=== PATIENT | female | born 1945 | race Asian ===

== ENCOUNTER 2023-04-23 17:18 | Inpatient (IN) | payer MEDICARE, OTHER ==
[~2023-04-23] VITALS: Ht 152.4 cm; Wt 52.2 kg
[2023-04-23 18:16] LABS: BASOPHILS % (AUTO) 0.2 % (0.0-2.0); EOSINOPHILS # (AUTO) 0.1 K/uL (0.0-0.7); EOSINOPHILS % (AUTO) 0.8 % (0.0-7.0); HEMATOCRIT 34.6 % (31.2-41.9); HEMOGLOBIN 10.9 g/dL (10.9-14.3); LYMPHOCYTES # (AUTO) 1.4 K/uL (0.8-4.8); LYMPHOCYTES % (AUTO) 8.4 % (20.5-51.5); MEAN CORPUSCULAR HEMOGLOBIN 27.5 uug (24.7-32.8); MEAN CORPUSCULAR HGB CONC 32 g/dL (32.3-35.6); MEAN CORPUSCULAR VOLUME 87.2 fL (75.5-95.3); MONOCYTES # (AUTO) 0.4 K/uL (0.1-1.30); MONOCYTES % (AUTO) 2.7 % (0.0-11.0); NEUTROPHILS # (AUTO) 14.2 K/uL (1.8-8.9); NEUTROPHILS % (AUTO) 87.9 % (38.5-71.5); PLATELET COUNT (AUTO) 291 K/uL (179-408); RED BLOOD CELL COUNT(AUTO) 3.97 MIL/uL (3.63-4.92); RED CELL DISTRIBUTION WIDTH 13.7 % (12.3-17.7); WHITE BLOOD COUNT (AUTO) 16.2 K/uL (3.8-11.8)
[2023-04-23 18:22] LABS: DIFFERENTIAL COMMENT 1
[2023-04-23 18:31] LABS: CALCIUM 9.2 mg/dL (8.5-10.1); CARBON DIOXIDE 24 mmol/L (21-32); CHLORIDE 105 mmol/L (98-107); CREATININE 1.4 mg/dL (0.6-1.3); GLUCOSE 220 mg/dL (74-106); POTASSIUM 4.4 mmol/L (3.5-5.1); SODIUM SERUM 135 mmol/L (136-145); UREA NITROGEN, BLOOD 39 mg/dL (7-18)
[2023-04-23 18:45] LABS: ALANINE AMINOTRANSFERASE 23 U/L (14-59); ALBUMIN 3.2 g/dL (3.4-5.0); ALKALINE PHOSPHATASE 66 U/L (50-136); ASPARTATE AMINOTRANSFERASE 12 U/L (15-37); BILIRUBIN,DIRECT 0.1 mg/dL (0.0-0.2); BILIRUBIN,TOTAL 0.3 mg/dL (0.2-1.0); NT-PRO BNP 79 pg/mL (0-125); TOTAL PROTEIN, SERUM 7.2 g/dL (6.4-8.2)
[2023-04-23 20:00] LABS: *BILIRUBIN,URIN NEGATIVE (NEGATIVE); *BLOOD, URINE 2+ (NEGATIVE); *CLARITY,URINE CLOUDY (CLEAR); *COLOR,URINE YELLOW (YELLOW); *KETONES,URINE NEGATIVE (NEGATIVE); *PROTEIN,URINE 1+ (NEGATIVE); *UROBILINOGEN,URINE 0.2 E.U./dl (NORMAL); LEUKOCYTE ESTERASE ,URINE 1+ (NEGATIVE); NITRITE, URINE POSITIVE (NEGATIVE); UGLUCOSE NEGATIVE (NEGATIVE)
[2023-04-23 20:26] LABS: BACTERIA,URINE MANY /HPF (NONE SEEN); RBC,URINE 50-80 /HPF (0-3)
[2023-04-23 20:27] LABS: SQUAMOUS EPITHELIAL CELL,UR FEW /HPF (NONE SEEN)
[2023-04-23] MEDS ORDERED: CEFTRIAXONE 1 G in IV DEXTROSE 5% 50 ML IV ONE (21:00)
[2023-04-23] MEDS ORDERED: CEFTRIAXONE /D5W 50ML IVPB **ER PYXIS IV ONE (21:12)
[2023-04-23] MEDS ORDERED: IV NS 1000 ML 1,000 ML IV ONE (21:15)
[2023-04-23] MEDS ORDERED: METRONIDAZOLE 500 MG/NS 100 ML PIGGYBACK IV ONE (22:00)
[2023-04-23] MEDS ORDERED: REMEDY ESSENTIAL ZINC PASTE 113 GM TP PRN (22:45)
[2023-04-23] MEDS ORDERED: MAGNESIUM HYDROXIDE 30 ML LIQUID UDC PO PRN (22:45)
[2023-04-23] MEDS ORDERED: ONDANSETRON 4 MG/2 ML VIAL IV PRN (22:45)
[2023-04-23] MEDS ORDERED: ACETAMINOPHEN 325 MG TABLET PO PRN (22:45)
[2023-04-23] MEDS ORDERED: DEXTROSE 50% 50 ML DISP.SYRIN IV PRN (23:45)
[2023-04-24] MEDS ORDERED: PIPERACILLIN SODIUM/TAZOBACTAM 3.375 G in IV DEXTROSE 5% 50 ML IV SCH ×2 (03:00→09:00)
[2023-04-24] MEDS ORDERED: PIPERACILLIN/TAZOBACTAM/D5W 50 ML IV ONE (03:28)
[2023-04-24] MEDS: BLOOD SUGAR DIAGNOSTIC 1 EACH STRIP VI SCH ×4 (08:30→21:07)
[2023-04-24] MEDS ORDERED: ENOXAPARIN SODIUM 30 MG/0.3 ML DISP.SYRIN ONE (08:51)
[2023-04-24] MEDS: ENOXAPARIN SODIUM 30 MG/0.3 ML DISP.SYRIN SQ SCH (09:11)
[2023-04-24] MEDS: PIPERACILLIN SODIUM/TAZOBACTAM 3.375 G in IV DEXTROSE 5% 100 ML IV SCH ×2 (11:56→20:05)
[2023-04-24] MEDS: INSULIN REGULAR, HUMAN 300 UNIT/3 ML VIAL SQ PRN ×3 (12:25→21:12)
[2023-04-24 17:00] VITALS: BP 126/61; TEMP 97.2; O2SAT 97
[2023-04-24] MEDS: IV NS 1000 ML 1,000 ML IV PRN ×2 (17:19→20:05)
[2023-04-24 20:59] VITALS: BP 103/72; TEMP 98.9; O2SAT 92
[2023-04-24] MEDS: REMEDY ESSENTIAL ZINC PASTE 113 GM TP SCH (21:09)
[2023-04-25 00:14] VITALS: BP 106/41; TEMP 98.8; O2SAT 95
[2023-04-25 04:06] VITALS: BP 98/35; TEMP 99.4; O2SAT 93
[2023-04-25] MEDS: PIPERACILLIN SODIUM/TAZOBACTAM 3.375 G in IV DEXTROSE 5% 100 ML IV SCH ×3 (04:09→20:05)
[2023-04-25 04:20] LABS: *BILIRUBIN,URIN NEGATIVE (NEGATIVE); *BLOOD, URINE 3+ (NEGATIVE); *COLOR,URINE YELLOW (YELLOW); *KETONES,URINE NEGATIVE (NEGATIVE); *PROTEIN,URINE 2+ (NEGATIVE); *UROBILINOGEN,URINE 0.2 E.U./dl (NORMAL); LEUKOCYTE ESTERASE ,URINE TRACE (NEGATIVE); NITRITE, URINE NEGATIVE (NEGATIVE); PH,URINE 5.5 (5.0-8.0); UGLUCOSE NEGATIVE (NEGATIVE)
[2023-04-25 04:21] LABS: *CLARITY,URINE SLIGHTLY CLOUDY (CLEAR)
[2023-04-25 04:26] LABS: *URINE TOTAL PROTEIN RANDOM 85.1 mg/dL (<150/24HR)
[2023-04-25 04:29] LABS: BACTERIA,URINE NONE SEEN /HPF (NONE SEEN); RBC,URINE 50-80 /HPF (0-3); SQUAMOUS EPITHELIAL CELL,UR FEW /HPF (NONE SEEN)
[2023-04-25 04:35] LABS: URIC ACID CRYSTALS,URINE MODERATE /HPF (NONE SEEN)
[2023-04-25 07:22] LABS: BASOPHILS % (AUTO) 0.1 % (0.0-2.0); EOSINOPHILS # (AUTO) 0.4 K/uL (0.0-0.7); EOSINOPHILS % (AUTO) 4.5 % (0.0-7.0); HEMATOCRIT 28.5 % (31.2-41.9); HEMOGLOBIN 9.5 g/dL (10.9-14.3); LYMPHOCYTES # (AUTO) 0.4 K/uL (0.8-4.8); MEAN CORPUSCULAR HEMOGLOBIN 28.6 uug (24.7-32.8); MEAN CORPUSCULAR HGB CONC 33 g/dL (32.3-35.6); MONOCYTES # (AUTO) 0.3 K/uL (0.1-1.30); MONOCYTES % (AUTO) 3.3 % (0.0-11.0); NEUTROPHILS # (AUTO) 7.2 K/uL (1.8-8.9); NEUTROPHILS % (AUTO) 87.1 % (38.5-71.5); PLATELET COUNT (AUTO) 232 K/uL (179-408); RED BLOOD CELL COUNT(AUTO) 3.31 MIL/uL (3.63-4.92); RED CELL DISTRIBUTION WIDTH 13.5 % (12.3-17.7); WHITE BLOOD COUNT (AUTO) 8.3 K/uL (3.8-11.8)
[2023-04-25] MEDS: BLOOD SUGAR DIAGNOSTIC 1 EACH STRIP VI SCH ×4 (07:22→20:32)
[2023-04-25 07:26] LABS: DIFFERENTIAL COMMENT 1
[2023-04-25 07:43] LABS: ALANINE AMINOTRANSFERASE 23 U/L (14-59); ALBUMIN 2.7 g/dL (3.4-5.0); ALKALINE PHOSPHATASE 58 U/L (50-136); ASPARTATE AMINOTRANSFERASE 20 U/L (15-37); BILIRUBIN,TOTAL 0.6 mg/dL (0.2-1.0); CALCIUM 7.7 mg/dL (8.5-10.1); CARBON DIOXIDE 22 mmol/L (21-32); CHLORIDE 103 mmol/L (98-107); CREATININE 1.5 mg/dL (0.6-1.3); GLUCOSE 158 mg/dL (74-106); MAGNESIUM 1.5 mg/dL (1.8-2.4); PHOSPHOROUS 2.7 mg/dL (2.5-4.9); POTASSIUM 3.8 mmol/L (3.5-5.1); SODIUM SERUM 135 mmol/L (136-145); TOTAL PROTEIN, SERUM 6.2 g/dL (6.4-8.2); UREA NITROGEN, BLOOD 33 mg/dL (7-18)
[2023-04-25] MEDS: INSULIN REGULAR, HUMAN 300 UNIT/3 ML VIAL SQ PRN ×3 (08:09→20:33)
[2023-04-25] MEDS: ENOXAPARIN SODIUM 30 MG/0.3 ML DISP.SYRIN SQ SCH (08:10)
[2023-04-25] MEDS: REMEDY ESSENTIAL ZINC PASTE 113 GM TP SCH ×2 (08:11→20:34)
[2023-04-25 08:20] LABS: CREATINE KINASE, TOTAL 30 U/L (26-192)
[2023-04-25] MEDS ORDERED: MAGNESIUM SULFATE/D5W 100 ML IV SCH (09:15)
[2023-04-25] MEDS: IV NS 1000 ML 1,000 ML IV PRN (10:42)
[2023-04-25 12:00] VITALS: BP 93/45; TEMP 97.9; O2SAT 98
[2023-04-25] MEDS ORDERED: D-ME473S47 PO (14:34)
[2023-04-25] MEDS ORDERED: VALS40TA4 PO (14:34)
[2023-04-25] MEDS ORDERED: DEXAMETHASONE EACHEYE (14:34)
[2023-04-25] MEDS ORDERED: LOPE2TAB25 PO (14:34)
[2023-04-25] MEDS ORDERED: ESCI10TA PO (14:34)
[2023-04-25] MEDS ORDERED: POLYMYXIN B EACHEYE (14:34)
[2023-04-25] MEDS ORDERED: ACET-2030 PO (14:34)
[2023-04-25] MEDS ORDERED: NEOMYCIN EACHEYE (14:34)
[2023-04-25] MEDS ORDERED: METF-441 PO (14:34)
[2023-04-25] MEDS ORDERED: INSU100V11 SQ (14:34)
[2023-04-25 16:00] VITALS: BP 99/51; TEMP 98; O2SAT 97
[2023-04-25 20:00] VITALS: BP 124/66; TEMP 99; O2SAT 96
[2023-04-26] VITALS: BP 120/60; TEMP 99.2; O2SAT 98
[2023-04-26] MEDS: IV NS 1000 ML 1,000 ML IV PRN ×2 (02:14→19:11)
[2023-04-26] MEDS: PIPERACILLIN SODIUM/TAZOBACTAM 3.375 G in IV DEXTROSE 5% 100 ML IV SCH ×3 (04:01→20:42)
[2023-04-26 04:58] VITALS: BP 144/68; TEMP 98; O2SAT 95
[2023-04-26] MEDS: BLOOD SUGAR DIAGNOSTIC 1 EACH STRIP VI SCH ×4 (06:36→20:50)
[2023-04-26 06:59] LABS: BASOPHILS % (AUTO) 0.1 % (0.0-2.0); EOSINOPHILS # (AUTO) 0.4 K/uL (0.0-0.7); EOSINOPHILS % (AUTO) 7.7 % (0.0-7.0); HEMATOCRIT 29.2 % (31.2-41.9); HEMOGLOBIN 9.5 g/dL (10.9-14.3); LYMPHOCYTES # (AUTO) 0.6 K/uL (0.8-4.8); LYMPHOCYTES % (AUTO) 10.7 % (20.5-51.5); MEAN CORPUSCULAR HEMOGLOBIN 28.3 uug (24.7-32.8); MEAN CORPUSCULAR HGB CONC 33 g/dL (32.3-35.6); MEAN CORPUSCULAR VOLUME 86.4 fL (75.5-95.3); MONOCYTES # (AUTO) 0.3 K/uL (0.1-1.30); MONOCYTES % (AUTO) 4.7 % (0.0-11.0); NEUTROPHILS # (AUTO) 4.3 K/uL (1.8-8.9); NEUTROPHILS % (AUTO) 76.8 % (38.5-71.5); PLATELET COUNT (AUTO) 239 K/uL (179-408); RED BLOOD CELL COUNT(AUTO) 3.37 MIL/uL (3.63-4.92); RED CELL DISTRIBUTION WIDTH 13.4 % (12.3-17.7); WHITE BLOOD COUNT (AUTO) 5.6 K/uL (3.8-11.8)
[2023-04-26 07:12] LABS: DIFFERENTIAL COMMENT 1
[2023-04-26 07:27] LABS: ALANINE AMINOTRANSFERASE 22 U/L (14-59); ALBUMIN 2.5 g/dL (3.4-5.0); ALKALINE PHOSPHATASE 58 U/L (50-136); ASPARTATE AMINOTRANSFERASE 18 U/L (15-37); BILIRUBIN,TOTAL 0.3 mg/dL (0.2-1.0); CALCIUM 7.8 mg/dL (8.5-10.1); CARBON DIOXIDE 22 mmol/L (21-32); CHLORIDE 108 mmol/L (98-107); CREATININE 1.3 mg/dL (0.6-1.3); GLUCOSE 160 mg/dL (74-106); MAGNESIUM 1.8 mg/dL (1.8-2.4); PHOSPHOROUS 2.6 mg/dL (2.5-4.9); SODIUM SERUM 138 mmol/L (136-145); TOTAL PROTEIN, SERUM 6.4 g/dL (6.4-8.2); UREA NITROGEN, BLOOD 20 mg/dL (7-18)
[2023-04-26 08:04] LABS: CREATINE KINASE, TOTAL 26 U/L (26-192)
[2023-04-26 08:06] LABS: PTH, INTACT 30 pg/mL (15-65)
[2023-04-26] MEDS: ENOXAPARIN SODIUM 30 MG/0.3 ML DISP.SYRIN SQ SCH (08:22)
[2023-04-26] MEDS: REMEDY ESSENTIAL ZINC PASTE 113 GM TP SCH ×2 (08:30→20:44)
[2023-04-26] MEDS: INSULIN REGULAR, HUMAN 300 UNIT/3 ML VIAL SQ PRN ×4 (08:56→20:57)
[2023-04-26 12:00] VITALS: TEMP 97.9
[2023-04-26 16:00] VITALS: TEMP 98.2
[2023-04-26 16:06] LABS: ALBUMIN 2.8 g/dL (2.9-4.4); ALPHA-1-GLOBULIN 0.3 g/dL (0.0-0.4); ALPHA-2-GLOBULIN 0.8 g/dL (0.4-1.0); BETA GLOBULIN 0.8 g/dL (0.7-1.3); GLOBULIN, TOTAL 2.8 g/dL (2.2-3.9); M-SPIKE Not Observed g/dL (Not Observed)
[2023-04-26 21:15] VITALS: BP 144/66; TEMP 98.4; O2SAT 97
[2023-04-26] MEDS: GUAIFENESIN SUGAR FREE 100 MG/5 ML UDC PO PRN (23:36)
[2023-04-27 00:01] VITALS: BP 142/53; TEMP 98.3; O2SAT 97
[2023-04-27] MEDS: PIPERACILLIN SODIUM/TAZOBACTAM 3.375 G in IV DEXTROSE 5% 100 ML IV SCH ×3 (03:59→20:08)
[2023-04-27 04:21] VITALS: BP 126/65; TEMP 98.2; O2SAT 96
[2023-04-27 06:24] LABS: PTH, INTACT 23 pg/mL (15-65)
[2023-04-27] MEDS: BLOOD SUGAR DIAGNOSTIC 1 EACH STRIP VI SCH ×4 (06:51→21:42)
[2023-04-27] MEDS: GUAIFENESIN SUGAR FREE 100 MG/5 ML UDC PO PRN (09:05)
[2023-04-27] MEDS: ENOXAPARIN SODIUM 30 MG/0.3 ML DISP.SYRIN SQ SCH (09:07)
[2023-04-27] MEDS: INSULIN REGULAR, HUMAN 300 UNIT/3 ML VIAL SQ PRN ×4 (09:10→21:43)
[2023-04-27] MEDS: REMEDY ESSENTIAL ZINC PASTE 113 GM TP SCH ×2 (09:11→21:40)
[2023-04-27 12:00] VITALS: BP 120/64; TEMP 98.8; O2SAT 98
[2023-04-27 13:06] LABS: A/G RATIO 0.9 (0.7-1.7); ALBUMIN 2.7 g/dL (2.9-4.4); ALPHA-1-GLOBULIN 0.3 g/dL (0.0-0.4); ALPHA-2-GLOBULIN 0.8 g/dL (0.4-1.0); BETA GLOBULIN 0.8 g/dL (0.7-1.3); GLOBULIN, TOTAL 2.9 g/dL (2.2-3.9); M-SPIKE Not Observed g/dL (Not Observed)
[2023-04-27 16:00] VITALS: BP 139/67; TEMP 98; O2SAT 98
[2023-04-27] MEDS ORDERED: ALBUTEROL SULFATE 2.5 MG/3 ML NEBU NEB PRN (17:00)
[2023-04-27] MEDS ORDERED: IPRATROPIUM BROMIDE 0.5 MG/2.5 ML NEBU NEB PRN (17:00)
[2023-04-27] MEDS: PROTEIN SUPPLEMENT (PROSTAT) 30 ML LIQUID PO SCH (17:30)
[2023-04-27 20:00] VITALS: BP 125/68; TEMP 98.6; O2SAT 97
[2023-04-28] VITALS (7 sets, daily range): BP systolic 121–132; BP diastolic 55–72; TEMP 98–99; O2SAT 96–100
[2023-04-28] MEDS: GUAIFENESIN SUGAR FREE 100 MG/5 ML UDC PO PRN ×2 (02:07→16:18)
[2023-04-28] MEDS: PIPERACILLIN SODIUM/TAZOBACTAM 3.375 G in IV DEXTROSE 5% 100 ML IV SCH ×3 (03:58→20:47)
[2023-04-28 06:15] LABS: BASOPHILS % (AUTO) 0.2 % (0.0-2.0); EOSINOPHILS # (AUTO) 0.5 K/uL (0.0-0.7); EOSINOPHILS % (AUTO) 8.8 % (0.0-7.0); HEMATOCRIT 30.1 % (31.2-41.9); HEMOGLOBIN 10.1 g/dL (10.9-14.3); LYMPHOCYTES # (AUTO) 1.1 K/uL (0.8-4.8); LYMPHOCYTES % (AUTO) 17.1 % (20.5-51.5); MEAN CORPUSCULAR HEMOGLOBIN 28.7 uug (24.7-32.8); MEAN CORPUSCULAR HGB CONC 34 g/dL (32.3-35.6); MEAN CORPUSCULAR VOLUME 85.4 fL (75.5-95.3); MONOCYTES # (AUTO) 0.6 K/uL (0.1-1.30); MONOCYTES % (AUTO) 9.8 % (0.0-11.0); NEUTROPHILS % (AUTO) 64.1 % (38.5-71.5); PLATELET COUNT (AUTO) 260 K/uL (179-408); RED BLOOD CELL COUNT(AUTO) 3.53 MIL/uL (3.63-4.92); RED CELL DISTRIBUTION WIDTH 13.5 % (12.3-17.7); WHITE BLOOD COUNT (AUTO) 6.2 K/uL (3.8-11.8)
[2023-04-28 06:26] LABS: DIFFERENTIAL COMMENT 1
[2023-04-28] MEDS: BLOOD SUGAR DIAGNOSTIC 1 EACH STRIP VI SCH ×4 (06:40→21:09)
[2023-04-28 06:42] LABS: CALCIUM 8.5 mg/dL (8.5-10.1); CARBON DIOXIDE 23 mmol/L (21-32); CHLORIDE 106 mmol/L (98-107); CREATININE 1.3 mg/dL (0.6-1.3); GLUCOSE 147 mg/dL (74-106); MAGNESIUM 1.7 mg/dL (1.8-2.4); PHOSPHOROUS 3.3 mg/dL (2.5-4.9); POTASSIUM 3.9 mmol/L (3.5-5.1); SODIUM SERUM 138 mmol/L (136-145); UREA NITROGEN, BLOOD 16 mg/dL (7-18)
[2023-04-28] MEDS: REMEDY ESSENTIAL ZINC PASTE 113 GM TP SCH ×2 (09:00→21:26)
[2023-04-28] MEDS ORDERED: MAGNESIUM OXIDE 400 MG TABLET PO ONE (10:00)
[2023-04-28] MEDS: ESCITALOPRAM OXALATE 10 MG TABLET PO SCH (10:30)
[2023-04-28] MEDS: GLUCERNA SHAKE 237 ML CAN PO SCH (10:31)
[2023-04-28] MEDS: PROTEIN SUPPLEMENT (PROSTAT) 30 ML LIQUID PO SCH ×2 (10:31→17:50)
[2023-04-28] MEDS: ENOXAPARIN SODIUM 30 MG/0.3 ML DISP.SYRIN SQ SCH (10:35)
[2023-04-28] MEDS: INSULIN REGULAR, HUMAN 300 UNIT/3 ML VIAL SQ PRN ×3 (12:22→21:33)
[2023-04-29] MEDS: GUAIFENESIN SUGAR FREE 100 MG/5 ML UDC PO PRN ×2 (00:57→08:07)
[2023-04-29] MEDS: PIPERACILLIN SODIUM/TAZOBACTAM 3.375 G in IV DEXTROSE 5% 100 ML IV SCH (04:18)
[2023-04-29] MEDS: BLOOD SUGAR DIAGNOSTIC 1 EACH STRIP VI SCH ×2 (06:37→12:18)
[2023-04-29 07:31] LABS: BASOPHILS # (AUTO) 0.1 K/UL (0.0-0.2); BASOPHILS % (AUTO) 0.9 % (0.0-2.0); EOSINOPHILS # (AUTO) 0.7 K/uL (0.0-0.7); EOSINOPHILS % (AUTO) 9.8 % (0.0-7.0); HEMATOCRIT 30.6 % (31.2-41.9); LYMPHOCYTES # (AUTO) 1.5 K/uL (0.8-4.8); LYMPHOCYTES % (AUTO) 20.5 % (20.5-51.5); MEAN CORPUSCULAR HEMOGLOBIN 28.4 uug (24.7-32.8); MEAN CORPUSCULAR HGB CONC 33 g/dL (32.3-35.6); MEAN CORPUSCULAR VOLUME 86.9 fL (75.5-95.3); MONOCYTES # (AUTO) 0.7 K/uL (0.1-1.30); MONOCYTES % (AUTO) 9.6 % (0.0-11.0); NEUTROPHILS # (AUTO) 4.3 K/uL (1.8-8.9); NEUTROPHILS % (AUTO) 59.2 % (38.5-71.5); PLATELET COUNT (AUTO) 200 K/uL (179-408); RED BLOOD CELL COUNT(AUTO) 3.53 MIL/uL (3.63-4.92); RED CELL DISTRIBUTION WIDTH 13.6 % (12.3-17.7); WHITE BLOOD COUNT (AUTO) 7.3 K/uL (3.8-11.8)
[2023-04-29 07:47] LABS: DIFFERENTIAL COMMENT 1
[2023-04-29 08:00] VITALS: BP 131/62; TEMP 98.6; O2SAT 94
[2023-04-29] MEDS: ENOXAPARIN SODIUM 30 MG/0.3 ML DISP.SYRIN SQ SCH (08:08)
[2023-04-29] MEDS: PROTEIN SUPPLEMENT (PROSTAT) 30 ML LIQUID PO SCH (08:09)
[2023-04-29] MEDS: ESCITALOPRAM OXALATE 10 MG TABLET PO SCH (08:09)
[2023-04-29] MEDS: GLUCERNA SHAKE 237 ML CAN PO SCH (08:09)
[2023-04-29] MEDS: REMEDY ESSENTIAL ZINC PASTE 113 GM TP SCH (08:10)
[2023-04-29 08:19] LABS: CALCIUM 8.6 mg/dL (8.5-10.1); CARBON DIOXIDE 28 mmol/L (21-32); CHLORIDE 103 mmol/L (98-107); CREATININE 1.3 mg/dL (0.6-1.3); GLUCOSE 140 mg/dL (74-106); MAGNESIUM 1.7 mg/dL (1.8-2.4); PHOSPHOROUS 4.1 mg/dL (2.5-4.9); SODIUM SERUM 137 mmol/L (136-145); UREA NITROGEN, BLOOD 16 mg/dL (7-18)
[2023-04-29] MEDS ORDERED: CLOTRIMAZOLE 1% CREAM 30 GM TUBE TOP SCH (09:00)
[2023-04-29] MEDS: INSULIN REGULAR, HUMAN 300 UNIT/3 ML VIAL SQ PRN (12:17)
[2023-04-29] MEDS ORDERED: MAGNESIUM OXIDE 400 MG TABLET PO ONE (13:00)
[2023-04-29] MEDS ORDERED: AMOXicillin 250 MG CAPSULE PO SCH (14:00)
== END 2023-04-29 14:00 | DRG 689 ==
LOC: ER 17:18 → TRANSITION 04-24 02:17 → TELE3 04-24 15:50 → MEDSURG3 04-28 11:10
PROVIDERS: ADMIT Internal Medicine; ATTEND Nurse Practitioner Family
PROC: 05HC33Z Insertion of Infusion Device into Left Basilic Vein, Percutaneous Approach (ICD-10-PCS; principal; 2023-04-24)
DX: N39.0 Urinary tract infection, site not specified (principal); G93.41 Metabolic encephalopathy; N17.0 Acute kidney failure with tubular necrosis; E44.0 Moderate protein-calorie malnutrition; E87.1 Hypo-osmolality and hyponatremia; E86.0 Dehydration; Z20.822 Contact with and (suspected) exposure to COVID-19; D64.9 Anemia, unspecified; B96.20 Unspecified Escherichia coli [E. coli] as the cause of diseases classified elsewhere; E86.1 Hypovolemia; E88.09 Other disorders of plasma-protein metabolism, not elsewhere classified; Z86.16 Personal history of COVID-19; L89.151 Pressure ulcer of sacral region, stage 1; N18.9 Chronic kidney disease, unspecified; I12.9 Hypertensive chronic kidney disease with stage 1 through stage 4 chronic kidney disease, or unspecified chronic kidney disease; Z68.22 Body mass index [BMI] 22.0-22.9, adult; E11.22 Type 2 diabetes mellitus with diabetic chronic kidney disease; F03.90 Unspecified dementia, unspecified severity, without behavioral disturbance, psychotic disturbance, mood disturbance, and anxiety; K52.9 Noninfective gastroenteritis and colitis, unspecified; L53.9 Erythematous condition, unspecified; L98.8 Other specified disorders of the skin and subcutaneous tissue; R31.9 Hematuria, unspecified
CPT/HCPCS: 36415; 70450; 71045; 71046; 83605; 83735; 83970; 84100; 84155; 84165; 84300; 84484; 85025; 85730; 87040; 93005; 94664; 94760; A4663; G0378; J0696; J1650; J2543; J3475; J3490; J3590; J7040